=== PATIENT | female | born 1955 | race African-American/Black ===

== ENCOUNTER 2025-02-12 06:45 | Emergency (ER) | payer MEDICAID, MEDICARE ==
[~2025-02-12] VITALS: Ht 162.6 cm; Wt 42.0 kg
[~2025-02-12 06:45] MED LIST: ATOR40TA70 PO; BRIM15DR8 EACHEYE; DORZ10DR8 EACHEYE; FOLI-43 PO; LATA2.5D7 EACHEYE; LOSA50TA41 PO; MULT-624 PO; OMEP20CA14 PO; THIA100T72 PO
[2025-02-12 06:55] VITALS: TEMP 36.8; O2SAT 96
[2025-02-12] MEDS ORDERED: TOPUD PO (09:08)
[2025-02-12 09:19] VITALS: BP 144/85; PULSE 71; RESP 16; O2SAT 100
== END 2025-02-12 09:31 | disposition home or self-care (01) ==
LOC: ER 06:45
DX: S50.01XA Contusion of right elbow, initial encounter (principal); I10 Essential (primary) hypertension; Z79.899 Other long term (current) drug therapy; D64.9 Anemia, unspecified; W22.09XA Striking against other stationary object, initial encounter; Y93.89 Activity, other specified; Y92.89 Other specified places as the place of occurrence of the external cause; Y99.8 Other external cause status
CPT/HCPCS: 73080; 99283